=== PATIENT | female | born 1970 | race Caucasian/White ===

== ENCOUNTER 2024-01-29 16:59 | Emergency (ER) | payer OTHER ==
[2024-01-29 17:29] VITALS: BP 172/79; PULSE 72; RESP 16; TEMP 98.4; BMI 30.7
[2024-01-29 17:36] LABS: HCG,QUALITATIVE URINE Negative
[2024-01-29 18:16] LABS: HEMATOCRIT 38.8 % (32.4-45.2); HEMOGLOBIN 12.7 G/dL (10.7-15.3); MCH 29.1 pg (25.7-33.7); MCHC 32.6 g/dl (32.0-36.0); MEAN CELL VOLUME 89.2 fl (80-96); PLATELET COUNT 339.3 10^3/uL (134-434); RBC 4.35 10^6/uL (3.60-5.2); RDW 14.4 % (11.6-15.6); WHITE BLOOD COUNT 10.9 10^3/uL (4.0-10.8)
[2024-01-29 18:40] LABS: PLATELET ESTIMATE ADEQUATE
[2024-01-29 18:48] LABS: BILIRUBIN,TOTAL 0.3 mg/dl (0.2-1); CALCIUM 9.1 mg/dl (8.5-10.1); CREATININE 0.9 mg/dl (0.6-1.3); TOT PROT 6.8 g/dl (6.4-8.2)
[2024-01-29] MEDS ORDERED: ACETAMINOPHEN INJECTION 100 ML IVPB ONE (18:54)
[2024-01-29] MEDS: SODIUM CHLORIDE 0.9% 1000 ML INFUS.BAG IV ONE (19:05)
[2024-01-29] MEDS: ACETAMINOPHEN 1000 MG/100 ML BAG IVPB ONE (19:05)
[2024-01-29] MEDS ORDERED: AZITHROMYCIN 500 MG TABLET ONE (20:25)
[2024-01-29] MEDS: AZITHROMYCIN 500 MG TABLET PO ONE (20:30)
[2024-01-29 20:57] LABS: HIV INTERPRETATION NEGATIVE (NEGATIVE)
== END 2024-01-29 21:18 | disposition home or self-care (01) ==
LOC: FER 16:59
PROC: 3E033NZ Introduction of Analgesics, Hypnotics, Sedatives into Peripheral Vein, Percutaneous Approach (ICD-10-PCS; principal; 2024-01-29)
PROC: 3E03329 Introduction of Other Anti-infective into Peripheral Vein, Percutaneous Approach (ICD-10-PCS; 2024-01-29)
DX: R10.2 Pelvic and perineal pain (principal)
CPT/HCPCS: 36415; 74177-TC; 76830-TC; 80053; 81003; 81015; 84703; 85027; 87086; 87389; 87491; 87522; 87591; 99285-25; J0131; Q9967